=== PATIENT | female | born 1950 | race Caucasian/White ===

== ENCOUNTER → 2017-09-15 | Day surgery (SDC) | payer OTHER ==
[~2017-09-15] MED LIST: LIDOCAINE 1% PF 2 ML VIAL. ID; MIDAZOLAM HCL/PF 2 MG/2 ML VIAL. IV; PROPOFOL 20 ML IV; fentaNYL PF VIAL 100 MCG/2 ML VIAL IV
[2017-09-15] MEDS: IV RINGERS,LACTATED 1000ML 1,000 ML IV (06:33)
== END | disposition home or self-care (01) ==
LOC: ENDOS 05:58
DX: Z12.11 Encounter for screening for malignant neoplasm of colon (principal); K64.0 First degree hemorrhoids; I10 Essential (primary) hypertension; M19.91 Primary osteoarthritis, unspecified site; Z98.890 Other specified postprocedural states; Z98.41 Cataract extraction status, right eye; Z87.39 Personal history of other diseases of the musculoskeletal system and connective tissue
CPT/HCPCS: 45378; J2704

== ENCOUNTER → 2019-03-07 | Outpatient (CLI) | payer MEDICARE, OTHER ==
[2017-09-15 07:51] VITALS: BP 123/56
--- NOTE | 2019-03-07 17:34 | KCIC ---
MR of the left shoulder HISTORY: Left shoulder pain for about 30 years. TECHNIQUE: Routine multiplanar sequences are obtained. FINDINGS: The acromioclavicular joint is mildly degenerative and hypertrophic. There is mild tendinosis signal within the rotator cuff. No evidence of supraspinatus or infraspinatus tendon tear. Partial subscapularis tendon tear high-grade. Trace subdeltoid bursal effusion. No significant joint effusion. Very small focus of signal at the superior labrum somewhat indeterminate but could represent a very small tear. No evidence of advanced primary osteoarthritis. Biceps tendon is intact. No bone destruction or acute fracture. No abnormal soft tissue fluid collection. IMPRESSION: 1. High-grade tear of the subscapularis tendon. 2. Probable small superior labral tear. Electronically signed by: Schuyler Berger MD (03/07/2019 5:31 PM) [id number]
== END | disposition home or self-care (01) ==
LOC: KCIC MRI 14:59
PROVIDERS: ATTEND Family Medicine
DX: S46.012A Strain of muscle(s) and tendon(s) of the rotator cuff of left shoulder, initial encounter (principal); M25.512 Pain in left shoulder; M89.312 Hypertrophy of bone, left shoulder; M25.412 Effusion, left shoulder; X58.XXXA Exposure to other specified factors, initial encounter; Y93.89 Activity, other specified; Y92.89 Other specified places as the place of occurrence of the external cause; Y99.8 Other external cause status
CPT/HCPCS: 73221